=== PATIENT | female | born 1955 | race Caucasian/White ===

== ENCOUNTER → 2017-10-27 | Outpatient (CLI) | payer BC ==
[2017-10-27 11:04] LABS: ALANINE AMINOTRANSFERASE 30 U/L (9-52); ALBUMIN 4.4 g/dL (3.5-5.0); ALKALINE PHOSPHATASE 79 U/L (38-126); ANION GAP 10 (5-19); ASPARTATE AMINO TRANSFERASE 24 U/L (14-36); BILIRUBIN,DIRECT 0.3 mg/dL (0.0-0.4); BILIRUBIN,TOTAL 0.8 mg/dL (0.2-1.3); BLOOD UREA NITROGEN 13 mg/dL (7-20); CALCIUM 9.9 mg/dL (8.4-10.2); CARBON DIOXIDE 29 mmol/L (22-30); CHLORIDE 107 mmol/L (98-107); CHOLESTEROL 217.26 mg/dL (0-200); GLUCOSE 93 mg/dL (75-110); POTASSIUM 4.6 mmol/L (3.6-5.0); SODIUM 145.6 mmol/L (137-145); TOTAL PROTEIN 7.2 g/dL (6.3-8.2); TRIGLYCERIDES 231 mg/dL (<150)
[2017-10-27 11:15] LABS: DIRECT LDL 136 mg/dL (<100)
[2017-10-27 11:18] LABS: VLDL CHOLESTEROL 46.2 mg/dL (10-31)
[2017-10-27 11:50] LABS: ABSOLUTE BASOPHILS # (AUTO) 0.1 10^3/uL (0.0-0.2); ABSOLUTE EOSINOPHILS # (AUTO) 0.3 10^3/uL (0.0-0.6); ABSOLUTE LYMPHOCYTES (AUTO) 2.3 10^3/uL (0.5-4.7); ABSOLUTE MONOCYTES (AUTO) 0.8 10^3/uL (0.1-1.4); ABSOLUTE NEUT (AUTO) 6.3 10^3/uL (1.7-8.2); BASOPHILS % (AUTO) 1.4 % (0-2); EOSINOPHILS % (AUTO) 2.8 % (0-6); HEMATOCRIT 40.9 % (36.0-47.0); HEMOGLOBIN 13.7 g/dL (12.0-15.5); LYMPHOCYTES % (AUTO) 23.6 % (13-45); MEAN CORPUSCULAR HEMOGLOBIN 28.4 pg (27.0-33.4); MEAN CORPUSCULAR HGB CONC 33.5 g/dL (32.0-36.0); MEAN CORPUSCULAR VOLUME 85 fl (80-97); MONOCYTES % (AUTO) 7.9 % (3-13); PLATELET COUNT 345 10^3/uL (150-450); RED BLOOD COUNT 4.83 10^6/uL (3.72-5.28); RED CELL DISTRIBUTION WIDTH 13.5 % (11.5-14.0); SEGMENTED NEUTROPHILS % (AUTO) 64.3 % (42-78); TOTAL CELLS COUNTED % (AUTO) 100 %; WHITE BLOOD COUNT 9.8 10^3/uL (4.0-10.5)
--- NOTE | 2017-10-27 11:56 | RADIOLOGY REPORT (SQ) ---
EXAM DESCRIPTION: U/S ABDOMEN COMPLETE W/DOPPLER COMPLETED DATE/TIME: 10/27/2017 9:57 am REASON FOR STUDY: ABD PAIN (R10.9), NAUSEA (R11.0) R10.9 UNSPECIFIED ABDOMINAL PAIN COMPARISON: None. TECHNIQUE: Dynamic and static grayscale images acquired of the abdomen and recorded on PACS. Additio nal selected color Doppler and spectral images recorded. LIMITATIONS: Bowel gas shadowing over the right lower pole kidney FINDINGS: PANCREAS: Midline pancreas unremarkable. LIVER: No masses. Echotexture normal. LIVER VASCULATURE: Normal directional flow of the main portal vein and hepatic veins. GALLBLADDER: No stones. Minimal sludge in the gallbladder. Normal wall thickness. No pericholecysti c fluid. ULTRASOUND-DETECTED GOMEZ'S SIGN: Negative. INTRAHEPATIC DUCTS AND COMMON DUCT: CBD and intrahepatic ducts normal caliber. No filling defects. INFERIOR VENA CAVA: Normal flow. AORTA: No aneurysm. RIGHT KIDNEY: Normal size. Normal echogenicity. No solid or suspicious masses. No hydronephros is. No calcifications. LEFT KIDNEY: Normal size. Normal echogenicity. No solid or suspicious masses. No hydronephrosi s. No calcifications. SPLEEN: Normal size. No solid masses. PERITONEAL AND PLEURAL SPACES: No ascites or effusions. OTHER: No other significant finding. IMPRESSION: NORMAL ABDOMINAL ULTRASOUND. TECHNICAL DOCUMENTATION: JOB ID: [id number] [employer]- All Rights Reserved Reading location - IP/workstation name: [email or web address]
== END ==
LOC: RAD 08:42
PROVIDERS: ATTEND Internal Medicine Geriatric Medicine
DX: Z00.00 Encounter for general adult medical examination without abnormal findings (principal); R10.9 Unspecified abdominal pain; R11.0 Nausea
CPT/HCPCS: 36415; 76700; 80053; 80061; 85025; 93976

== ENCOUNTER 2020-04-10 17:28 | Emergency (ER) | payer OTHER ==
[2020-04-10] MEDS ORDERED: LIDOCAINE 1% INJ-PF (10 MG/ML) 30 ML SDV INJ ONE (18:31)
--- NOTE | 2020-04-10 18:33 | ER Document Report ---
HPI - HPI Patient complains to provider of: finger infection Time Seen by Provider: 04/10/20 18:24 Notes: 64-year-old female to the emergency department with complaints of right thumb infection and pain that began yesterday and got worse today. She states that she had a temperature of 100.5 today. She took Tylenol for this. She also took the Tylenol for pain but that did not help. She does not recall any sort of injury to her finger. She denies biting her fingernails or cutting into her cuticles. She does pare it that often will gently nipped at her. However, she does not think that the peer has been knitting at her cuticles lately. She is not febrile here in the emergency department. She denies any other symptoms. She is right-hand dominant. - ROS Systems Reviewed and Negative: Yes All other systems reviewed and negative - CONSTITUTIONAL Constitutional: REPORTS: Fever. DENIES: Chills - EENT EENT: DENIES: Sore Throat, Ear Pain, Congestion - NEURO Neurology: DENIES: Headache - CARDIOVASCULAR Cardiovascular: DENIES: Chest pain - RESPIRATORY Respiratory: DENIES: Trouble Breathing, Coughing - GASTROINTESTINAL Gastrointestinal: DENIES: Abdominal Pain, Nausea, Patient vomiting, Diarrhea - MUSCULOSKELETAL Musculoskeletal: REPORTS: Extremity pain - See HPI, Swelling - DERM Skin Color: Normal Notes: See HPI Past Medical History - General Information source: Patient - Social History Smoking Status: Never Smoker Frequency of alcohol use: None Drug Abuse: None Family History: Reviewed & Not Pertinent - Past Medical History Cardiac Medical History: Reports: Hx Hypertension Denies: Hx Coronary Artery Disease, Hx Heart Attack Pulmonary Medical History: Denies: Hx Asthma, Hx Bronchitis, Hx COPD, Hx Pneumonia Neurological Medical History: Denies: Hx Cerebrovascular Accident, Hx Seizures Endocrine Medical History: Denies: Hx Diabetes Mellitus Type 2 Musculoskeletal Medical History: Reports Hx Arthritis Skin Medical History: Denies Hx MRSA Psychiatric Medical History: Reports: Hx Depression Infectious Medical History: Denies: Hx MRSA Past Surgical History: Denies: Hx Hysterectomy - Immunizations Immunizations up to date: Yes Hx Diphtheria, Pertussis, Tetanus Vaccination: Yes - 2006 Vertical Provider Document - CONSTITUTIONAL Agree With Documented VS: Yes Exam Limitations: No Limitations General Appearance: WD/WN, No Apparent Distress - INFECTION CONTROL TRAVEL OUTSIDE OF THE [place] IN LAST 30 DAYS: No - HEENT HEENT: Atraumatic, Normocephalic, PERRLA - NECK Neck: Normal Inspection, Supple - RESPIRATORY Respiratory: Breath Sounds Normal, No Respiratory Distress. negative: Rales, Rhonchi, Wheezing - CARDIOVASCULAR Cardiovascular: Regular Rate, Regular Rhythm, No Murmur - GI/ABDOMEN Gastrointestinal: Abdomen Soft, Abdomen Non-Tender, No Organomegaly - MUSCULOSKELETAL/EXTREMETIES Notes: To the right thumb at the nailbed there is a paronychia. There is evidence for pustule with surrounding induration and erythema. This is very tender to palpation. However patient has retained 5 out of 5 strength and testing of both flexor tendons as well as extensor tendons in all fingers of the right hand. No snuffbox tenderness. There is no streaking lymphangitis. Handgrip is 5 out of 5. Radial pulses are intact and equal. Cap refill is less than 2 seconds - NEURO Level of Consciousness: Alert, Appropriate Motor/Sensory: No Motor Deficit, No Sensory Deficit - DERM Integumentary: Warm, Dry Notes: See extremity for further discussion of paronychia to the right thumb nail Course - Vital Signs Vital signs: Temp Pulse Resp BP Pulse Ox 98.9 F 89 16 152/74 H 97 04/10/20 17:35 04/10/20 17:35 04/10/20 17:35 04/10/20 17:35 04/10/20 17:35 Procedures - Incision and Drainage Right Dorsal Thumb Type: Simple Anesthetic type: 2% Lidocaine mL's of anesthetic: 5 Blade size: 11 I&D procedure: Betadine prep applied, Shurclens applied Incision Method: Incision made by scalpel Notes: Digital block was performed on the patient. After successful anesthesia was achieved. A scalpel was placed between the cuticle and the nailbed. This released purulence from underneath the nailbed consistent with paronychia. It was expressed until it drained only blood. Patient tolerated the procedure very well Discharge - Discharge Clinical Impression: Paronychia Condition: Stable Disposition: HOME, SELF-CARE Instructions: Paronychia ([facility]) Additional Instructions: Complete all antibiotics. Return if worsening pain, worsening redness, or any other concerns. Follow-up with your primary care in 1 week for wound check. Prescriptions: Doxycycline Hyclate 100 mg PO BID #20 tablet. Naproxen [Naprosyn 250 mg Tablet] 250 mg PO BID #20 tablet Forms: Return to Work Referrals: LISSA MCCORMICK MD [Primary Care Provider] - Follow up in 1 week
[2020-04-10] MEDS ORDERED: HYDROCODONE/ACETAMINOPHEN 5-325 MG TABLET PO ONE (18:36)
[2020-04-10] MEDS ORDERED: DOXYCYCLINE HYCLATE 100 MG TABLET PO ONE (19:28)
[2020-04-10 19:55] VITALS: BP 150/87
== END 2020-04-10 19:54 | disposition home or self-care (01) ==
LOC: ER 17:28
DX: L03.011 Cellulitis of right finger (principal); R50.9 Fever, unspecified; I10 Essential (primary) hypertension
CPT/HCPCS: 99283